=== PATIENT | male | born 1985 | race Caucasian/White ===

== ENCOUNTER 2018-11-03 20:28 | Emergency (ER) | payer OTHER ==
[~2018-11-03] VITALS: Ht 170.2 cm; Wt 74.8 kg
[2018-11-03 21:46] VITALS: BP 126/71
== END 2018-11-03 21:47 | disposition left against medical advice (07) ==
LOC: M.ERS 20:28
DX: Z53.21 Procedure and treatment not carried out due to patient leaving prior to being seen by health care provider (principal)